=== PATIENT | female | born 1960 | race Caucasian/White ===

== ENCOUNTER → 2016-06-20 | Outpatient (CLI) | payer BC ==
--- NOTE | 2016-06-20 10:11 | WWHP ---
DATE OF SERVICE: 06/20/2016 CHIEF COMPLAINT: The patient is here for her routine gynecologic exam. HPI: This is a 55-year-old G1, P1 with an LMP of 04/11/2017. She states her periods have been spacing out over the last 1 to 2 years. Last year she had 3 periods. She says they were fairly normal and seem to be getting shorter. They are typically lasting 3 to 4 days when she does have one. She says she has occasional hot flashes, but they are not regular. She is without complaints. She previously saw Dr. Ruiz for her gynecologic care. PAST MEDICAL HISTORY: Chronic hypertension, elevated cholesterol, asthma, and mild cirrhosis. MEDICATIONS: 1. Losartan 25 mg daily. 2. Metoprolol 25 mg b.i.d. 3. Simvastatin 20 mg daily. 4. Albuterol inhaler p.r.n. which she rarely uses. 5. Vitamin D 2000 units daily. Allergies to KEFLEX, FLAGYL and SHELLFISH. PAST SURGICAL HISTORY: D&C 2013. PAST OB HISTORY: One vaginal delivery. 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 SOCIAL HISTORY: She denies tobacco and drug use and has about 4 alcoholic drinks per year. 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 She is planning to retire 11/2016. FAMILY HISTORY: Father had lymphoma, mother has chronic hypertension, elevated cholesterol, and psoriasis. REVIEW OF SYSTEMS: Weight has been stable. She denies respiratory, cardiac, or GI problems. PHYSICAL EXAM: Blood pressure 163/79. Repeat blood pressure was 150/90. Height 5 feet 9 inches. Weight 220 pounds. Temperature 97.2, pulse 64. This a well-developed, well-nourished white female who is alert and oriented x3 in no acute distress. HEENT is within normal limits. NECK: Supple without mass or thyromegaly. CHEST AND LUNGS: Clear to auscultation. HEART: Regular rate and rhythm. Breasts are without mass or discharge. Axillary exam is negative for adenopathy. BACK: Negative CVA tenderness. ABDOMEN: Soft, nontender, without palpable masses. PELVIC EXAM: Normal external genitalia. Cervix and vagina appear normal. There is no evidence of prolapse. The uterus is midposition, nongravid size and nontender. There are no palpable adnexal masses or tenderness. Rectovaginal exam is negative for mass or tenderness and is negative for occult blood. EXTREMITIES: Nontender. IMPRESSION: 1. A 55-year-old perimenopausal female with normal gynecologic exam. 2. Elevated cholesterol with history of chronic hypertension. PLAN: 1. Pap smear was performed. 2. Self breast examination was discussed. 3. Mammogram was recently done on 04/18/2016 and this was benign. 4. We discussed her elevated blood pressure. She does take her blood pressure on a regular basis at home. She will follow up with Dr. Jessica for her blood pressure elevations. 5. Osteoporosis prevention was discussed. 6. She will return in one year.
== END | disposition home or self-care (01) ==
LOC: WWCWWP 08:23
PROVIDERS: ATTEND Obstetrics & Gynecology

== ENCOUNTER → 2017-04-10 | Outpatient (CLI) | payer BC ==
[2017-04-10 10:36] LABS: Basophils # (A) 0.1 k/uL (0-0.2); Basophils % (A) 1 %; CH 30.1; CHCM 32.7; Eosinophils # (A) 0.4 k/uL (0-0.7); Eosinophils % (A) 6 %; HCT 46.6 % (34.0-46.0); HGB 14.9 gm/dL (11.4-16.0); Luc % (Auto) 2; Lymphocytes # (A) 1.3 k/uL (1.0-4.8); Lymphocytes % (A) 22 %; MCH 29.5 pg (25.0-35.0); MCHC 31.9 g/dL (31.0-37.0); MCV 92.5 fL (80.0-100.0); Mean Platelet Volume 7.4; Monocytes # (A) 0.4 k/uL (0-1.0); Monocytes % (A) 7 %; Neutrophils # (A) 3.8 k/uL (1.3-7.7); Neutrophils % (A) 62 %; RBC 5.04 m/uL (3.80-5.40); RDW 14.2 % (11.5-15.5); WBC 6.1 k/uL (3.8-10.6); WBC (Perox) 6.02
[2017-04-10 10:49] LABS: ALT 71 U/L (9-52); AST 41 U/L (14-36); Alkaline Phosphatase 122 U/L (38-126); Anion Gap 12 mmol/L; Blood Urea Nitrogen 17 mg/dL (7-17); Calcium 10.3 mg/dL (8.4-10.2); Carbon Dioxide 30 mmol/L (22-30); Chloride 101 mmol/L (98-107); Cholesterol 158 mg/dL (<200); Glucose 109 mg/dL (74-99); HDL Cholesterol 36 mg/dL (40-60); Non-African American GFR(MDRD) >60 (>60 ml/min/1.73 sqM); Potassium 4.7 mmol/L (3.5-5.1); Sodium 143 mmol/L (137-145); Total Bilirubin 0.6 mg/dL (0.2-1.3); Total Protein 7.6 g/dL (6.3-8.2)
== END | disposition home or self-care (01) ==
LOC: LABWHC1 10:10
PROVIDERS: ATTEND Family Medicine
DX: Z00.00 Encounter for general adult medical examination without abnormal findings (principal); I10 Essential (primary) hypertension
CPT/HCPCS: 36415; 80053; 80061; 82306; 84439; 84443; 85025

== ENCOUNTER → 2017-07-17 | Outpatient (CLI) | payer BC ==
[2017-07-17 09:33] VITALS: BP 144/94; PULSE 74; TEMP 98; BMI 31.7
--- NOTE | 2017-07-17 10:00 | P.HPOB ---
History of Present Illness H&P Date: 07/17/17 Chief Complaint: The patient is here for her routine gynecologic exam. This is a 56 year old with an LMP of 03/2016. The patient is without gynecologic complaints. Review of Systems The patient has lost about 5 pounds over the last year with diet and exercise. She denies respiratory, cardiac, and G.I. problems. Past Medical History Past Medical History: Asthma, Hyperlipidemia, Hypertension Additional Past Medical History / Comment(s): HIGH CHOLESTEROL,BONE DENSITY NONE , COLONOSCOPY OCTOBER 2016. She denies past liver problems but had slightly abnormal liver tests done by Dr. Jessica in 2017 per the patient. History of Any Multi-Drug Resistant Organisms: None Reported Additional Past Surgical History / Comment(s): D&C 2014, colonoscopy 10/2016. Past Psychological History: No Psychological Hx Reported Smoking Status: Never smoker Past Alcohol Use History: Occasional (0-1/week.) Additional History: She previously worked at a [employer] and now is retired. She has been since 1979. - Past Family History Father Family Medical History: Cancer Additional Family Medical History / Comment(s): LYMPHOMA Mother Family Medical History: Hyperlipidemia, Hypertension, Skin Disorder (Psoriasis) Medications and Allergies Home Medications Medication Instructions Recorded Confirmed Type Albuterol Inhaler [Ventolin Hfa 1 - 2 puff INHALATION Q6HR PRN 07/17/17 History Inhaler] Cholecalciferol (Vitamin D3) 1 cap PO DAILY 07/17/17 07/17/17 History [Vitamin D3] Losartan [Cozaar] 25 mg PO DAILY 07/17/17 07/17/17 History Metoprolol Tartrate [Lopressor] 25 mg PO BID 07/17/17 07/17/17 History Simvastatin [Zocor] 20 mg PO DAILY 07/17/17 07/17/17 History Allergies Allergy/AdvReac Type Severity Reaction Status Date / Time cephalexin [From Keflex] AdvReac Severe Nausea & Unverified 07/17/17 09:46 Vomiting metronidazole [From Flagyl] AdvReac Severe Nausea & Unverified 07/17/17 09:46 Vomiting Exam - Vital Signs Vital signs: Vital Signs Temp Pulse BP 07/17/17 09:30 98.0 F 74 144/94 Intake and Output 07/16/17 07/17/17 07/17/17 22:59 06:59 14:59 Other: Weight 97.522 kg Height 5'9" BMI 31.7. This is a well-developed well-nourished white female who is alert and oriented times 3 in no acute distress. HEENT: Within normal limits. NECK: Supple without mass or thyromegaly. CHEST AND LUNGS: Clear to auscultation. HEART: Regular rate and rhythm. BREASTS: Are without mass or discharge. AXILLARY EXAM: Negative for adenopathy. BACK: Negative for CVA tenderness. ABDOMEN: Soft, nontender, without palpable masses. PELVIC EXAM: Normal external genitalia with minimal atrophy. Cervix and vagina appear normal with minimal atrophy. There is no unusual discharge. There is no evidence of prolapse. The uterus is midposition, nongravid size and nontender. There are no palpable adnexal masses or tenderness. RECTAL EXAM: rectovaginal exam is negative for mass or tenderness and is negative for occult blood. EXTREMITIES: Nontender. IMPRESSION: 1. 56-year-old menopausal female with normal gynecologic exam. PLAN: 1. Pap smear was deferred since she had a normal one last year. 2. Self breast examination was discussed. 3. Screening mammogram is due in an order slip was given to the patient for this. 4. Osteoporosis prevention was discussed. 5. She will return in one year. 6. She will follow-up with Dr. Jessica regarding her abnormal liver tests.
== END | disposition home or self-care (01) ==
LOC: WWCWWP 09:09
PROVIDERS: ATTEND Obstetrics & Gynecology
DX: Z53.9 Procedure and treatment not carried out, unspecified reason (principal)

== ENCOUNTER → 2017-08-14 | Outpatient (CLI) | payer BC ==
--- NOTE | 2017-08-15 08:48 | MM ---
Reason for exam: screening (asymptomatic). Last mammogram was performed 1 year and 4 months ago. Physical Findings: A clinical breast exam by your physician is recommended on an annual basis and results should be correlated with mammographic findings. MG Screening Mammo w CAD Bilateral CC and MLO view(s) were taken. Prior study comparison: April 18, 2016, bilateral MG screening mammo w CAD. April 12, 2015, bilateral MG screening mammo w CAD. Benign calcifications bilaterally. There is chronic nodularity in the right breast. No significant changes when compared with prior studies. ASSESSMENT: Benign, BI-RAD 2 RECOMMENDATION: Routine screening mammogram of both breasts in 1 year.
== END | disposition home or self-care (01) ==
LOC: RADMAMWWP 13:08
PROVIDERS: ATTEND Obstetrics & Gynecology
DX: Z12.31 Encounter for screening mammogram for malignant neoplasm of breast (principal)
CPT/HCPCS: 77067

== ENCOUNTER → 2018-08-21 | Outpatient (CLI) | payer BC ==
[2018-08-21 09:35] VITALS: BP 159/94; PULSE 80; RESP 18; TEMP 98.3; BMI 69.0
--- NOTE | 2018-08-21 10:31 | P.HPOB ---
History of Present Illness H&P Date: 08/21/18 Chief Complaint: The patient is here for her routine gynecologic exam. This is a 57-year-old with an LMP of March 2017. The patient has been experiencing vaginal dryness especially during sexual intercourse which can make things uncomfortable. She has tried a lubricant with slight improvement. She noticed a small amount of discharge in the pubic hair earlier this week, but denies vaginal odor or blood. Review of Systems Weight has been stable. She denies respiratory, cardiac, or G.I. problems. Past Medical History Past Medical History: Asthma, Hyperlipidemia, Hypertension Additional Past Medical History / Comment(s): She denies past liver problems but had slightly abnormal liver tests done by Dr. Jessica in 2017 per the patient. 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 History of Any Multi-Drug Resistant Organisms: None Reported Additional Past Surgical History / Comment(s): D&C 2013, colonoscopy 10/2016. Past Psychological History: No Psychological Hx Reported Smoking Status: Never smoker Past Alcohol Use History: Occasional (1 per month) Past Drug Use History: None Reported Additional History: She has been since 1979 and is retired. She likes to spend time in [place] during the winter. - Past Family History Father Family Medical History: Cancer Additional Family Medical History / Comment(s): LYMPHOMA Mother Family Medical History: Hyperlipidemia, Hypertension, Skin Disorder Additional Family Medical History / Comment(s): Psoriasis. Medications and Allergies Home Medications Medication Instructions Recorded Confirmed Type Cholecalciferol (Vitamin D3) 1 cap PO DAILY 07/17/17 08/21/18 History [Vitamin D3] Losartan [Cozaar] 25 mg PO DAILY 07/17/17 08/21/18 History Metoprolol Tartrate [Lopressor] 25 mg PO BID 07/17/17 08/21/18 History Simvastatin [Zocor] 20 mg PO DAILY 07/17/17 08/21/18 History Allergies Allergy/AdvReac Type Severity Reaction Status Date / Time cephalexin [From Keflex] AdvReac Severe Nausea & Unverified 08/21/18 09:31 Vomiting metronidazole [From Flagyl] AdvReac Severe Nausea & Unverified 08/21/18 09:31 Vomiting Exam Vital Signs Temp Pulse Resp BP Pulse Ox 08/21/18 09:32 98.3 F 80 18 159/94 99 Intake and Output 04/30/19 05/01/19 05/01/19 22:59 06:59 14:59 Other: Weight 96.162 kg Height 5'9", weight 212 pounds, BMI 31.3. This is a well-developed well-nourished white female who is alert and oriented times 3 in no acute distress. HEENT: Within normal limits. NECK: Supple without mass or thyromegaly. CHEST AND LUNGS: Clear to auscultation. HEART: Regular rate and rhythm. BREASTS: Are without mass or discharge. AXILLARY EXAM: Negative for adenopathy. BACK: Negative for CVA tenderness. ABDOMEN: Soft, nontender, without palpable masses. PELVIC EXAM: Normal external genitalia with mild atrophy. Cervix and vagina appear normal with mild atrophy. There is no unusual discharge. There is no evidence of prolapse. The uterus is midposition, nongravid size and nontender. There are no palpable adnexal masses or tenderness. RECTAL EXAM: rectovaginal exam is negative for mass or tenderness and is negative for occult blood. EXTREMITIES: Nontender. IMPRESSION: 1. 57-year-old menopausal female with normal gynecologic exam. 2. Mild genital atrophy with vaginal dryness with intercourse. PLAN: 1. Pap smear was performed. 2. Self breast awareness was discussed with the patient. 3. Screening mammogram is scheduled for 09/03/2018. She has an order slip from Dr. Jessica for this. 4. Osteoporosis prevention was discussed. I have stressed the importance of adequate calcium, vitamin D and regular exercise. Recommended amounts of calcium and vitamin D were also discussed. We will plan on doing bone density testing at age 61. 5. We have discussed options for vaginal dryness with sexual intercourse. She is declining vaginal estrogen at this time. She will call if she changes her mind. 6.She was advised to return in one year for her annual well woman exam.
== END ==
LOC: WWCWWP 09:14
PROVIDERS: ATTEND Obstetrics & Gynecology
DX: Z53.9 Procedure and treatment not carried out, unspecified reason (principal)

== ENCOUNTER → 2018-09-03 | Outpatient (CLI) | payer BC ==
--- NOTE | 2018-09-04 09:38 | MM ---
Reason for exam: screening (asymptomatic). Last mammogram was performed 1 year and 1 month ago. Physical Findings: A clinical breast exam by your physician is recommended on an annual basis and results should be correlated with mammographic findings. MG Screening Mammo w CAD Bilateral CC and MLO view(s) were taken. Prior study comparison: August 14, 2017, bilateral MG screening mammo w CAD. April 18, 2016, bilateral MG screening mammo w CAD. The breast tissue is heterogeneously dense. This may lower the sensitivity of mammography. There is no discrete abnormality. ASSESSMENT: Negative, BI-RAD 1 RECOMMENDATION: Routine screening mammogram of both breasts in 1 year.
== END | disposition home or self-care (01) ==
LOC: RADMAMWWP 13:33
PROVIDERS: ATTEND Family Medicine
DX: Z12.31 Encounter for screening mammogram for malignant neoplasm of breast (principal)
CPT/HCPCS: 77067

== ENCOUNTER → 2018-09-11 | Outpatient (CLI) | payer BC ==
[2018-09-11 16:33] LABS: Albumin 4.4 g/dL (3.80-4.90); Albumin/Globulin Ratio 1.91 (1.60-3.17); Anion Gap 9.1 mmol/L (4.00-12.00); Calcium 9.2 mg/dL (8.7-10.3); Carbon Dioxide 26.9 mmol/L (21.6-31.8); Globulin 2.3 g/dL (1.6-3.3); Potassium 4.1 mmol/L (3.5-5.5); Total Bilirubin 0.7 mg/dL (0.3-1.2); Total Protein 6.7 g/dL (6.2-8.2)
== END | disposition home or self-care (01) ==
LOC: LABWHC1 08:30
PROVIDERS: ATTEND Family Medicine
DX: R74.8 Abnormal levels of other serum enzymes (principal)
CPT/HCPCS: 36415; 80053

== ENCOUNTER 2018-10-19 10:58 | Inpatient (IN) | payer BC ==
--- NOTE | 2018-10-19 11:43 | ED ---
General Adult HPI - General Chief complaint: Recheck/Abnormal Lab/Rx Stated complaint: Bruising Time Seen by Provider: 10/19/18 11:22 Source: patient Mode of arrival: ambulatory Limitations: no limitations - History of Present Illness Initial comments: Patient is a 57-year-old female presents with chief complaint of exertional fatigue and easy bruisability for the last week. Patient states that about 2 weeks ago she was treated for an upper respiratory infection and received a steroid shot. She improved after initial treatment however over the last week or so she states she has been increasingly more fatigued, and notices that she bruises very easily. She cannot identify an inciting incident. There are no aggravating or alleviating factors. Timing is constant. Patient denies any trauma to cause the bruising. She denies any previous episodes of the same. She states she was vaccinated as a child. Patient also complains of some sores in her mouth. - Related Data Home Medications Medication Instructions Recorded Confirmed Losartan [Cozaar] 25 mg PO DAILY 07/17/17 10/19/18 Metoprolol Tartrate [Lopressor] 25 mg PO BID 07/17/17 10/19/18 Simvastatin [Zocor] 20 mg PO HS 07/17/17 10/19/18 Calcium Carbonate [Calcium] 600 mg PO DAILY 10/19/18 10/19/18 Lifitegrast [Xiidra] 1 drop BOTH EYES BID 10/19/18 10/19/18 Allergies Allergy/AdvReac Type Severity Reaction Status Date / Time cephalexin [From Keflex] AdvReac Severe Nausea & Verified 10/19/18 12:13 Vomiting metronidazole [From Flagyl] AdvReac Severe Nausea & Verified 10/19/18 12:13 Vomiting shellfish derived [Shellfish] AdvReac Vomiting Verified 10/19/18 12:13 Review of Systems ROS Statement: Those systems with pertinent positive or pertinent negative responses have been documented in the HPI. ROS Other: All systems not noted in ROS Statement are negative. Constitutional: Reports: weakness Cardiovascular: Reports: palpitations, dyspnea on exertion. Denies: chest pain Endocrine: Reports: fatigue Gastrointestinal: Reports: nausea. Denies: abdominal pain Hematological/Lymphatic: Reports: easy bruising Past Medical History Past Medical History: Asthma, Hyperlipidemia, Hypertension Additional Past Medical History / Comment(s): She denies past liver problems but had slightly abnormal liver tests done by Dr. Jessica in 2017 per the patient. 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 History of Any Multi-Drug Resistant Organisms: None Reported Additional Past Surgical History / Comment(s): D&C 2013, colonoscopy 10/2016. Past Psychological History: No Psychological Hx Reported Smoking Status: Never smoker Past Alcohol Use History: Occasional Past Drug Use History: None Reported - Past Family History Father Family Medical History: Cancer Additional Family Medical History / Comment(s): LYMPHOMA Mother Family Medical History: Hyperlipidemia, Hypertension, Skin Disorder Additional Family Medical History / Comment(s): Psoriasis. General Exam Limitations: no limitations General appearance: alert, in no apparent distress Head exam: Present: atraumatic, normocephalic Eye exam: Present: normal appearance. Absent: scleral icterus ENT exam: Present: other (patient has few areas of purpura in the mouth, dental caries, no masses or other lesions identified. ) Neck exam: Present: normal inspection Respiratory exam: Present: normal lung sounds bilaterally. Absent: respiratory distress, wheezes Cardiovascular Exam: Present: regular rate, normal rhythm GI/Abdominal exam: Present: soft. Absent: distended, tenderness Rectal exam: Present: deferred Extremities exam: Present: normal inspection, other (patient has areas of bruising on the estremites, upper and lower, in different stages of healing. she denies trauma or abuse. ) Back exam: Present: normal inspection, full ROM. Absent: tenderness, CVA ten derness (R), CVA tenderness (L) Neurological exam: Present: alert, oriented X3 Psychiatric exam: Present: normal affect, normal mood Skin exam: Present: warm, dry, intact. Absent: petechiae Course Vital Signs 10/19/18 10/19/18 10/19/18 11:19 15:15 15:22 Temperature 99.1 F 98.6 F 98.6 F Pulse Rate 92 81 88 Respiratory 18 16 18 Rate Blood Pressure 133/90 116/83 136/86 O2 Sat by Pulse 98 95 97 Oximetry 10/19/18 15:32 Temperature 98.6 F Pulse Rate 85 Respiratory 18 Rate Blood Pressure 132/85 O2 Sat by Pulse 97 Oximetry Medical Decision Making - Medical Decision Making Patient presents with a chief complaint of easy fatigability and bruising over the last week. Initial evaluation, vitals are stable, patient is in no acute distress. She'll be evaluated patient lead including cardiac enzymes, chest x- ray, thyroid screen and d-dimer. EKG at 1242 shows NSR with a rate of 76 bmp. no ischemic changes, segments wnl. 1:26 PM Lab evaluation this patient shows a drop in hemoglobin to 10.1 from previous stable values of 14 (these were one year ago). Platelet count is 9000. Blasts are 67%, concern for malignant process at this time. Dimer elevated at 23.07. Labs otherwise stable. Results were discussed with the patient, that this is likely drug-induced thrombocytopenia however patient will be admitted to the hospital for further evaluation. Case discussed with Dr. Rosenberg who accepts admission with consult to Dr. Freedman. Patient will be sent for computed tomography scan of the chest to rule out pulmonary embolism. I doubt that this is a consumptive process however given elevated d-dimer. - Lab Data Result diagrams: 10/19/18 12:02 10/19/18 12:02 Lab Results 10/19/18 10/19/18 10/19/18 Range/Units 12:02 12:02 12:02 WBC 10.5 (3.8-10.6) k/uL RBC 3.17 L (3.80-5.40) m/uL Hgb 10.1 L (11.4-16.0) gm/dL Hct 27.6 L (34.0-46.0) % MCV 87.1 (80.0-100.0) fL MCH 32.0 (25.0-35.0) pg MCHC 36.7 (31.0-37.0) g/dL RDW 19.3 H (11.5-15.5) % Plt Count 9 L* (150-450) k/uL Neutrophils % (Manual) 7 % Band Neutrophils % 1 % Lymphocytes % (Manual) 13 % Metamyelocytes % 1 % Myelocytes % 6 % Promyelocytes % 6 % Blast Cells % 67 H* % Neutrophils # (Manual) 0.80 L (1.3-7.7) k/uL Lymphocytes # (Manual) 1.37 (1.0-4.8) k/uL Metamyelocytes # (Man) 0.11 H (0) k/uL Myelocytes # (Manual) 0.63 H (0) k/uL Promyelocytes # (Man) 0.63 H (0) k/uL Blast Cells # (Man) 7.04 H (0) k/uL Nucleated RBCs 0 (0-0) /100 WBC Manual Slide Review Performed Pathologist Review See comment A Hyperchromasia Slight Poikilocytosis Slight Anisocytosis Slight PT (9.0-12.0) sec INR (<1.2) D-Dimer (<0.60) mg/L FEU Sodium 140 (137-145) mmol/L Potassium 4.7 (3.5-5.1) mmol/L Chloride 106 (98-107) mmol/L Carbon Dioxide 24 (22-30) mmol/L Anion Gap 10 mmol/L BUN 19 H (7-17) mg/dL Creatinine 0.68 (0.52-1.04) mg/dL Est GFR (CKD-EPI)AfAm >90 (>60 ml/min/1.73 sqM) Est GFR (CKD-EPI)NonAf >90 (>60 ml/min/1.73 sqM) Glucose 120 H (74-99) mg/dL Calcium 9.5 (8.4-10.2) mg/dL Total Bilirubin 1.1 (0.2-1.3) mg/dL AST 40 H (14-36) U/L ALT 19 (9-52) U/L Alkaline Phosphatase 79 (38-126) U/L Troponin I <0.012 (0.000-0.034) ng/mL NT-Pro-B Natriuret Pep pg/mL Total Protein 7.7 (6.3-8.2) g/dL Albumin 4.7 (3.5-5.0) g/dL TSH 2.540 (0.465-4.680) mIU/L Blood Type Confirm 10/19/18 10/19/18 10/19/18 Range/Units 12:02 12:02 12:02 WBC (3.8-10.6) k/uL RBC (3.80-5.40) m/uL Hgb (11.4-16.0) gm/dL Hct (34.0-46.0) % MCV (80.0-100.0) fL MCH (25.0-35.0) pg MCHC (31.0-37.0) g/dL RDW (11.5-15.5) % Plt Count (150-450) k/uL Neutrophils % (Manual) % Band Neutrophils % % Lymphocytes % (Manual) % Metamyelocytes % % Myelocytes % % Promyelocytes % % Blast Cells % % Neutrophils # (Manual) (1.3-7.7) k/uL Lymphocytes # (Manual) (1.0-4.8) k/uL Metamyelocytes # (Man) (0) k/uL Myelocytes # (Manual) (0) k/uL Promyelocytes # (Man) (0) k/uL Blast Cells # (Man) (0) k/uL Nucleated RBCs (0-0) /100 WBC Manual Slide Review Pathologist Review Hyperchromasia Poikilocytosis Anisocytosis PT 11.7 (9.0-12.0) sec INR 1.1 (<1.2) D-Dimer 23.07 H (<0.60) mg/L FEU Sodium (137-145) mmol/L Potassium (3.5-5.1) mmol/L Chloride (98-107) mmol/L Carbon Dioxide (22-30) mmol/L Anion Gap mmol/L BUN (7-17) mg/dL Creatinine (0.52-1.04) mg/dL Est GFR (CKD-EPI)AfAm (>60 ml/min/1.73 sqM) Est GFR (CKD-EPI)NonAf (>60 ml/min/1.73 sqM) Glucose (74-99) mg/dL Calcium (8.4-10.2) mg/dL Total Bilirubin (0.2-1.3) mg/dL AST (14-36) U/L ALT (9-52) U/L Alkaline Phosphatase (38-126) U/L Troponin I (0.000-0.034) ng/mL NT-Pro-B Natriuret Pep 159 pg/mL Total Protein (6.3-8.2) g/dL Albumin (3.5-5.0) g/dL TSH (0.465-4.680) mIU/L Blood Type Confirm 10/19/18 Range/Units 12:02 WBC (3.8-10.6) k/uL RBC (3.80-5.40) m/uL Hgb (11.4-16.0) gm/dL Hct (34.0-46.0) % MCV (80.0-100.0) fL MCH (25.0-35.0) pg MCHC (31.0-37.0) g/dL RDW (11.5-15.5) % Plt Count (150-450) k/uL Neutrophils % (Manual) % Band Neutrophils % % Lymphocytes % (Manual) % Metamyelocytes % % Myelocytes % % Promyelocytes % % Blast Cells % % Neutrophils # (Manual) (1.3-7.7) k/uL Lymphocytes # (Manual) (1.0-4.8) k/uL Metamyelocytes # (Man) (0) k/uL Myelocytes # (Manual) (0) k/uL Promyelocytes # (Man) (0) k/uL Blast Cells # (Man) (0) k/uL Nucleated RBCs (0-0) /100 WBC Manual Slide Review Pathologist Review Hyperchromasia Poikilocytosis Anisocytosis PT (9.0-12.0) sec INR (<1.2) D-Dimer (<0.60) mg/L FEU Sodium (137-145) mmol/L Potassium (3.5-5.1) mmol/L Chloride (98-107) mmol/L Carbon Dioxide (22-30) mmol/L Anion Gap mmol/L BUN (7-17) mg/dL Creatinine (0.52-1.04) mg/dL Est GFR (CKD-EPI)AfAm (>60 ml/min/1.73 sqM) Est GFR (CKD-EPI)NonAf (>60 ml/min/1.73 sqM) Glucose (74-99) mg/dL Calcium (8.4-10.2) mg/dL Total Bilirubin (0.2-1.3) mg/dL AST (14-36) U/L ALT (9-52) U/L Alkaline Phosphatase (38-126) U/L Troponin I (0.000-0.034) ng/mL NT-Pro-B Natriuret Pep pg/mL Total Protein (6.3-8.2) g/dL Albumin (3.5-5.0) g/dL TSH (0.465-4.680) mIU/L Blood Type Confirm B Negative Disposition Clinical Impression: Thrombocytopenia, AML (acute myeloblastic leukemia) Disposition: ADMITTED IP TO THIS HOSP Condition: Fair Is patient prescribed a controlled substance at d/c from ED?: No Decision to Admit Reason: Admit from EC - Out of Hospital Transfer - Req. Specs Out of Hospital Transfer - Requested Specifics: Telemetry Unit
[2018-10-19 12:20] LABS: Anisocytosis Slight; HCT 27.6 % (34.0-46.0); HGB 10.1 gm/dL (11.4-16.0); Hyperchromasia Slight; MCHC 36.7 g/dL (31.0-37.0); MCV 87.1 fL (80.0-100.0); Mean Platelet Volume 7.9; Poikilocytosis Slight; RBC 3.17 m/uL (3.80-5.40); RDW 19.3 % (11.5-15.5); WBC 10.5 k/uL (3.8-10.6)
[2018-10-19 12:26] LABS: ALT 19 U/L (9-52); AST 40 U/L (14-36); African American GFR (CKD) >90 (>60 ml/min/1.73 sqM); Albumin 4.7 g/dL (3.5-5.0); Alkaline Phosphatase 79 U/L (38-126); Anion Gap 10 mmol/L; Blood Urea Nitrogen 19 mg/dL (7-17); Calcium 9.5 mg/dL (8.4-10.2); Carbon Dioxide 24 mmol/L (22-30); Chloride 106 mmol/L (98-107); Glucose 120 mg/dL (74-99); Sodium 140 mmol/L (137-145); Total Bilirubin 1.1 mg/dL (0.2-1.3); Total Protein 7.7 g/dL (6.3-8.2)
--- NOTE | 2018-10-19 12:29 | XR ---
EXAMINATION TYPE: XR chest 2V DATE OF EXAM: 10/19/2018 HISTORY: Pain. REFERENCE: Previous study dated 12/19/2011. FINDINGS: There is increased density in the left upper lobe. This was present previously and appeared osseous. The lungs are otherwise clear. Pleural spaces are clear. Heart size upper limits of normal. IMPRESSION: NO ACTIVE INTRATHORACIC DISEASE.
[2018-10-19 12:33] LABS: Platelet Count 9 k/uL (150-450)
[2018-10-19 12:34] LABS: Potassium 4.7 mmol/L (3.5-5.1)
[2018-10-19 13:00] LABS: Band Neutrophils % 1 %; Lymphocytes # (M) 1.37 k/uL (1.0-4.8); Metamyelocytes # (M) 0.11 k/uL (0); Metamyelocytes % 1 %; Myelocytes # (M) 0.63 k/uL (0); Myelocytes % 6 %; Neutrophils % (M) 7 %; Promyelocytes # (M) 0.63 k/uL (0); Promyelocytes % 6 %
[2018-10-19 13:21] LABS: Blast Cells # (M) 7.04 k/uL (0); Nucleated Red Blood Cells 0 /100 WBC (0-0); Total Cells Counted 200
[2018-10-19] MEDS ORDERED: NALOXONE 0.4 MG/ML 1 ML VIAL IV PRN (13:21)
[2018-10-19 13:25] LABS: INR 1.1 (<1.2); Prothrombin Time 11.7 sec (9.0-12.0)
[2018-10-19 13:42] LABS: Appearance,Urine Cloudy (Clear); Bacteria,Urine Occasional /hpf; Bilirubin,Urine Negative (Negative); Blood,Urine Moderate (Negative); Color,Urine Yellow; Glucose,Urine (UA) Negative (Negative); Ketones,Urine Negative (Negative); Leukocyte Esterase,Urine Negative (Negative); Mucus,Urine Few /hpf; Nitrite,Urine Negative (Negative); PH, Urine 5.5 (5.0-8.0); Protein,Urine Trace (Negative); RBC,Urine 5 /hpf (0-5); Specific Gravity,Urine 1.018 (1.001-1.035); Squamous Epithelial Cell,Urine 10 /hpf (0-4); Urobilinogen,Urine <2.0 mg/dL (<2.0); WBC,Urine 2 /hpf (0-5)
--- NOTE | 2018-10-19 14:27 | CT ---
EXAMINATION TYPE: CT chest angio for PE DATE OF EXAM: 10/19/2018 COMPARISON: None. HISTORY: Elevated D dimer, bruising CT DLP: 415.2 mGycm Automated exposure control for dose reduction was used. CONTRAST: CT Chest for pulmonary embolism performed with with IV Contrast, patient injected with 74 mL of Isovu e 370. FINDINGS: The lungs are clear. There is no significant axillary, internal mammary, mediastinal or hilar adenopathy. There is no evidence of pulmonary embolus. The aorta is normal in caliber without evidence of dissection. There is no evidence of pleural or pericardial fluid. Heart size upper limits of normal. There is a small, sliding hiatal hernia. Visualized upper abdominal structures are unremarkable. There is hypertrophic spondylosis within the spine. IMPRESSION: 1. THIS EXAMINATION IS NEGATIVE FOR PULMONARY EMBOLUS. 2. MILD CARDIOMEGALY. 3. SMALL HIATAL HERNIA. 4. DEGENERATIVE CHANGES WITHIN THE SPINE.
[2018-10-19 17:19] VITALS: BMI 28.5
[2018-10-19] MEDS: ACETAMINOPHEN TAB 325 MG TAB PO PRN (20:13)
[2018-10-19] MEDS: NON-FORMULARY DRUG (Lifitegrast [Xiidra] 1 DROP) BOTH EYES SCH (21:19)
[2018-10-19] MEDS: METOPROLOL TARTRATE 25 MG TAB PO SCH (21:19)
[2018-10-19] MEDS: ATORVASTATIN 10 MG TAB PO SCH (21:19)
[2018-10-19 22:13] LABS: Anisocytosis Slight; HCT 25.4 % (34.0-46.0); HGB 8.8 gm/dL (11.4-16.0); Hyperchromasia Slight; MCH 30.7 pg (25.0-35.0); MCHC 34.9 g/dL (31.0-37.0); MCV 88.1 fL (80.0-100.0); Mean Platelet Volume 9.4; Poikilocytosis Slight; RBC 2.88 m/uL (3.80-5.40); RDW 17.1 % (11.5-15.5)
[2018-10-19 22:41] LABS: Platelet Count 11 k/uL (150-450)
[2018-10-19 23:26] LABS: Band Neutrophils % 3 %; Metamyelocytes % 1 %; Myelocytes % 4 %; Neutrophils % (M) 9 %; Promyelocytes % 3 %
[2018-10-19 23:27] LABS: Nucleated Red Blood Cells 3 /100 WBC (0-0); Total Cells Counted 200
[2018-10-19 23:31] LABS: Polychromasia Present
[2018-10-20] MEDS: ACETAMINOPHEN TAB 325 MG TAB PO PRN ×3 (03:56→19:08)
[2018-10-20] MEDS: NON-FORMULARY DRUG (Lifitegrast [Xiidra] 1 DROP) BOTH EYES SCH ×2 (07:33→20:59)
[2018-10-20] MEDS: METOPROLOL TARTRATE 25 MG TAB PO SCH ×2 (07:34→20:59)
[2018-10-20] MEDS: CALCIUM CARBONATE 500 MG CHEWABLE PO SCH (07:34)
[2018-10-20 07:35] LABS: Anisocytosis Slight; HCT 23.3 % (34.0-46.0); HGB 8.3 gm/dL (11.4-16.0); Hyperchromasia Slight; MCH 31.7 pg (25.0-35.0); MCHC 35.7 g/dL (31.0-37.0); MCV 88.6 fL (80.0-100.0); Mean Platelet Volume 7.7; Poikilocytosis Slight; RBC 2.63 m/uL (3.80-5.40); RDW 17.4 % (11.5-15.5)
[2018-10-20] MEDS: LOSARTAN 25 MG TAB PO SCH (07:35)
[2018-10-20 07:46] LABS: African American GFR (CKD) >90 (>60 ml/min/1.73 sqM); Anion Gap 8 mmol/L; Blood Urea Nitrogen 17 mg/dL (7-17); Calcium 9.2 mg/dL (8.4-10.2); Carbon Dioxide 25 mmol/L (22-30); Chloride 107 mmol/L (98-107); Glucose 99 mg/dL (74-99); Potassium 3.6 mmol/L (3.5-5.1); Sodium 140 mmol/L (137-145)
[2018-10-20 08:05] LABS: Platelet Count 7 k/uL (150-450)
[2018-10-20 08:14] LABS: INR 1.1 (<1.2); Prothrombin Time 11.8 sec (9.0-12.0)
[2018-10-20 09:18] LABS: Band Neutrophils % 1 %; Eosinophils # (M) 0.11 k/uL (0-0.7); Metamyelocytes % 2 %; Myelocytes # (M) 0.43 k/uL (0); Myelocytes % 4 %; Neutrophils % (M) 5 %; Nucleated Red Blood Cells 1 /100 WBC (0-0); Promyelocytes % 9 %; Total Cells Counted 200
[2018-10-20 09:19] LABS: Blast Cells # (M) 7.38 k/uL (0); Lymphocytes # (M) 1.18 k/uL (1.0-4.8); Metamyelocytes # (M) 0.21 k/uL (0); Promyelocytes # (M) 0.96 k/uL (0); WBC 10.7 k/uL (3.8-10.6)
[2018-10-20 09:25] LABS: Polychromasia Present
--- NOTE | 2018-10-20 15:14 | P.HPIM ---
History of Present Illness H&P Date: 10/19/18 57-year-old female presents with chief complaint of exertional fatigue and easy bruisability for the last week. Patient states that about 2 weeks ago she was treated for an upper respiratory infection and received a steroid shot. She improved after initial treatment however over the last week or so she states she has been increasingly more fatigued, and notices that she bruises very easily. She cannot identify an inciting incident. There are no aggravating or alleviating factors. Timing is constant. Patient denies any trauma to cause the bruising. She denies any previous episodes of the same. She states she was vaccinated as a child. Patient also complains of some sores in her mouth. Patient was evaluated and worked up in ED with a chest x-ray which was unremarkable, d-dimer elevated at 23.07 and a thyroid screen which was negative; CT of the chest was done which was negative for PE; CBC showed a drop in hemoglobin to 10.1 from previous stable value of 14 and a platelet count of 19,000 Patient was transfused with 1 unit of platelets and is admitted to the hospital for further evaluation Review of Systems Constitutional: Reports fatigue, Reports weakness, Denies chills, Denies fever Eyes: denies blurred vision Ears, nose, mouth and throat: Denies epistaxis Cardiovascular: Reports decreased exercise tolerance, Reports dyspnea on exertion, Denies chest pain Respiratory: Denies cough with sputum Gastrointestinal: Reports vomiting, Denies abdominal pain, Denies nausea Musculoskeletal: Denies gait dysfunction Integumentary: Reports unusual bruising, Denies change in hair/nails, Denies darkening of skin Neurological: Denies double vision, Denies gait dysfunction Past Medical History Past Medical History: Asthma, Hyperlipidemia, Hypertension Additional Past Medical History / Comment(s): She denies past liver problems but had slightly abnormal liver tests done by Dr. Jessica in 2017 per the patient. 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 History of Any Multi-Drug Resistant Organisms: None Reported Additional Past Surgical History / Comment(s): D&C 2013, colonoscopy 10/2016. Past Psychological History: No Psychological Hx Reported Smoking Status: Never smoker Past Alcohol Use History: Occasional Past Drug Use History: None Reported - Past Family History Father Family Medical History: Cancer Additional Family Medical History / Comment(s): LYMPHOMA Mother Family Medical History: Hyperlipidemia, Hypertension, Skin Disorder Additional Family Medical History / Comment(s): Psoriasis. Medications and Allergies Home Medications Medication Instructions Recorded Confirmed Type Losartan [Cozaar] 25 mg PO DAILY 07/17/17 10/19/18 History Metoprolol Tartrate [Lopressor] 25 mg PO BID 07/17/17 10/19/18 History Simvastatin [Zocor] 20 mg PO HS 07/17/17 10/19/18 History Calcium Carbonate [Calcium] 600 mg PO DAILY 10/19/18 10/19/18 History Lifitegrast [Xiidra] 1 drop BOTH EYES BID 10/19/18 10/19/18 History Allergies Allergy/AdvReac Type Severity Reaction Status Date / Time cephalexin [From Keflex] AdvReac Severe Nausea & Verified 10/19/18 12:13 Vomiting metronidazole [From Flagyl] AdvReac Severe Nausea & Verified 10/19/18 12:13 Vomiting shellfish derived [Shellfish] AdvReac Vomiting Verified 10/19/18 12:13 Physical Exam Vitals: Vital Signs Temp Pulse Pulse Resp BP BP Pulse Ox 10/19/18 16:10 98.5 F 83 18 129/80 98 10/19/18 16:00 81 16 10/19/18 15:32 98.6 F 85 18 132/85 97 10/19/18 15:22 98.6 F 88 18 136/86 97 10/19/18 15:15 98.6 F 81 16 116/83 95 10/19/18 15:12 98.3 F 81 16 147/72 99 10/19/18 11:19 99.1 F 92 18 133/90 98 Intake and Output 10/19/18 10/19/18 10/19/18 06:59 14:59 22:59 Intake Total 419 Balance 419 Intake: Oral 120 Blood Product 299 Platelet Irr Pheresis 299 Acda1 Unit [id number] Other: Voiding Method Toilet # Voids 1 # Bowel Movements 1 Weight 91.626 kg Limitations: no limitations General appearance: alert, in no apparent distress Head exam: Present: atraumatic, normocephalic Eye exam: Present: normal appearance. Absent: scleral icterus ENT exam: Present: other (patient has few areas of purpura in the mouth, dental caries, no masses or other lesions identified. ) Neck exam: Present: normal inspection Respiratory exam: Present: normal lung sounds bilaterally. Absent: respiratory distress, wheezes Cardiovascular Exam: Present: regular rate, normal rhythm GI/Abdominal exam: Present: soft. Absent: distended, tenderness Rectal exam: Present: deferred Extremities exam: Present: normal inspection, other (patient has areas of bruising on the estremites, upper and lower, in different stages of healing. she denies trauma or abuse. ) Back exam: Present: normal inspection, full ROM. Absent: tenderness, CVA tenderness (R), CVA tenderness (L) Neurological exam: Present: alert, oriented X3 Psychiatric exam: Present: normal affect, normal mood Skin exam: Present: warm, dry, intact. Absent: petechiae Results CBC & Chem 7: 10/20/18 06:44 10/20/18 06:44 Labs: Abnormal Lab Results - Last 24 Hours (Table) 10/19/18 10/19/18 10/19/18 Range/Units 12:02 12:02 12:02 RBC 3.17 L (3.80-5.40) m/uL Hgb 10.1 L (11.4-16.0) gm/dL Hct 27.6 L (34.0-46.0) % RDW 19.3 H (11.5-15.5) % Plt Count 9 L* (150-450) k/uL Blast Cells % 67 H* % Neutrophils # (Manual) 0.80 L (1.3-7.7) k/uL Metamyelocytes # (Man) 0.11 H (0) k/uL Myelocytes # (Manual) 0.63 H (0) k/uL Promyelocytes # (Man) 0.63 H (0) k/uL Blast Cells # (Man) 7.04 H (0) k/uL Pathologist Review See comment A D-Dimer 23.07 H (<0.60) mg/L FEU BUN 19 H (7-17) mg/dL Glucose 120 H (74-99) mg/dL AST 40 H (14-36) U/L Urine Appearance (Clear) Urine Protein (Negative) Urine Blood (Negative) Ur Squamous Epith Cells (0-4) /hpf Urine Bacteria (None) /hpf Urine Mucus (None) /hpf 10/19/18 Range/Units 13:30 RBC (3.80-5.40) m/uL Hgb (11.4-16.0) gm/dL Hct (34.0-46.0) % RDW (11.5-15.5) % Plt Count (150-450) k/uL Blast Cells % % Neutrophils # (Manual) (1.3-7.7) k/uL Metamyelocytes # (Man) (0) k/uL Myelocytes # (Manual) (0) k/uL Promyelocytes # (Man) (0) k/uL Blast Cells # (Man) (0) k/uL Pathologist Review D-Dimer (<0.60) mg/L FEU BUN (7-17) mg/dL Glucose (74-99) mg/dL AST (14-36) U/L Urine Appearance Cloudy H (Clear) Urine Protein Trace H (Negative) Urine Blood Moderate H (Negative) Ur Squamous Epith Cells 10 H (0-4) /hpf Urine Bacteria Occasional H (None) /hpf Urine Mucus Few H (None) /hpf Thrombosis Risk Factor Assmnt - Choose All That Apply Any of the Below Risk Factors Present?: Yes Each Factor Represents 1 point: Age 41-60 years Thrombosis Risk Factor Assessment Total Risk Factor Score: 1 Thrombosis Risk Factor Assessment Level: Low Risk Assessment and Plan Assessment: 1. Marked thrombocytopenia - Patient is transfused with 1 unit of platelets; monitor CBC closely every 8 hours and transfuse as needed - Patient will be monitored closely for any signs of bleeding; oncology is consulted and recommendations are pending 2. Hypertension; fairly controlled on home dose of losartan and metoprolol 3. Hyperlipidemia; simvastatin 20 mg by mouth daily at bedtime 4. Asthma; not in exacerbation 5. DVT prophylaxis; SCDs only due to thrombus cytopenia CODE STATUS; full code Time with Patient: Greater than 30
--- NOTE | 2018-10-20 15:17 | P.PN ---
Subjective Progress Note Date: 10/20/18 Principal diagnosis: Blayne thrombocytopenia 10/20/2018 Patient is seen and evaluated in room with the sister at bedside; seems anxious; continue to complain of fatigue and exhaustion Review of vital signs show temperature of 98.1, pulse 84, respirations 16 and blood pressure 130/76 Laboratory review shows a white blood count 10.7, hemoglobin 8.3 and platelet count of 7 Patient is going to receive 1 more unit of platelets for a platelet count of 7; no overt bleeding; oncology consultation is pending; patient will be monitored closely until further recommendations from oncology service Objective - Vital Signs Vital signs: Vital Signs Temp 98.3 F 10/20/18 03:58 Pulse 74 10/20/18 03:58 Resp 16 10/20/18 03:58 BP 104/66 10/20/18 03:58 Pulse Ox 96 10/20/18 03:58 Intake & Output 10/19/18 10/20/18 10/20/18 18:59 06:59 18:59 Intake Total 419 100 Balance 419 100 Weight 91.626 kg Intake: Oral 120 100 Blood Product 299 Platelet Irr Pheresis 299 Acda1 Unit [id number] Other: Voiding Method Toilet Toilet # Voids 1 1 1 # Bowel Movements 1 1 - Exam - Constitutional General appearance: Present: average body habitus, cooperative, no acute distress - EENT Eyes: Present: anicteric sclerae, EOMI, PERRLA, normal appearance ENT: Present: hearing grossly normal, normal oropharynx Ears: bilateral: normal - Neck Neck: Present: normal ROM. Absent: lymphadenopathy, rigidity, thyromegaly Carotids: negative: bruit present Thyroid: bilateral: normal size, negative: enlarged, nodule - Respiratory Respiratory: bilateral: CTA, negative: rales, rhonchi, wheezing - Cardiovascular Rhythm: regular Heart sounds: normal: S1, S2 Abnormal Heart Sounds: Absent: systolic murmur, diastolic murmur - Gastrointestinal General gastrointestinal: Present: normal bowel sounds, soft. Absent: distended, organomegaly, tenderness - Genitourinary Genitourinary Comment(s): deferred - Integumentary Integumentary: Present: normal turgor. Absent: jaundiced, rash, ulcer - Neurologic Neurologic: Present: CNII-XII intact. Absent: focal deficits - Musculoskeletal Musculoskeletal: Present: gait normal, strength equal bilaterally - Psychiatric Psychiatric: Present: A&O x's 3, appropriate affect, intact judgment & insight - Labs CBC & Chem 7: 10/20/18 06:44 10/20/18 06:44 Labs: Abnormal Lab Results - Last 24 Hours (Table) 10/19/18 10/19/18 10/19/18 Range/Units 12:02 12:02 12:02 WBC (3.8-10.6) k/uL RBC 3.17 L (3.80-5.40) m/uL Hgb 10.1 L (11.4-16.0) gm/dL Hct 27.6 L (34.0-46.0) % RDW 19.3 H (11.5-15.5) % Plt Count 9 L* (150-450) k/uL Blast Cells % 67 H* % Neutrophils # (Manual) 0.80 L (1.3-7.7) k/uL Metamyelocytes # (Man) 0.11 H (0) k/uL Myelocytes # (Manual) 0.63 H (0) k/uL Promyelocytes # (Man) 0.63 H (0) k/uL Blast Cells # (Man) 7.04 H (0) k/uL Nucleated RBCs (0-0) /100 WBC Pathologist Review See comment A D-Dimer 23.07 H (<0.60) mg/L FEU BUN 19 H (7-17) mg/dL Glucose 120 H (74-99) mg/dL AST 40 H (14-36) U/L Urine Appearance (Clear) Urine Protein (Negative) Urine Blood (Negative) Ur Squamous Epith Cells (0-4) /hpf Urine Bacteria (None) /hpf Urine Mucus (None) /hpf 10/19/18 10/19/18 10/20/18 Range/Units 13:30 21:22 06:44 WBC 10.7 H (3.8-10.6) k/uL RBC 2.88 L 2.63 L (3.80-5.40) m/uL Hgb 8.8 L 8.3 L (11.4-16.0) gm/dL Hct 25.4 L 23.3 L (34.0-46.0) % RDW 17.1 H 17.4 H (11.5-15.5) % Plt Count 11 L* 7 L* (150-450) k/uL Blast Cells % 62 H* 69 H* % Neutrophils # (Manual) 1.20 L 0.60 L (1.3-7.7) k/uL Metamyelocytes # (Man) 0.10 H 0.21 H (0) k/uL Myelocytes # (Manual) 0.40 H 0.43 H (0) k/uL Promyelocytes # (Man) 0.30 H 0.96 H (0) k/uL Blast Cells # (Man) 6.20 H 7.38 H (0) k/uL Nucleated RBCs 3 H 1 H (0-0) /100 WBC Pathologist Review D-Dimer (<0.60) mg/L FEU BUN (7-17) mg/dL Glucose (74-99) mg/dL AST (14-36) U/L Urine Appearance Cloudy H (Clear) Urine Protein Trace H (Negative) Urine Blood Moderate H (Negative) Ur Squamous Epith Cells 10 H (0-4) /hpf Urine Bacteria Occasional H (None) /hpf Urine Mucus Few H (None) /hpf Assessment and Plan Assessment: 1. Marked thrombocytopenia - Patient is transfused with 1 unit of platelets; monitor CBC closely every 8 hours and transfuse as needed - Patient will be monitored closely for any signs of bleeding; oncology is consulted and recommendations are pending 2. Hypertension; fairly controlled on home dose of losartan and metoprolol 3. Hyperlipidemia; simvastatin 20 mg by mouth daily at bedtime 4. Asthma; not in exacerbation 5. DVT prophylaxis; SCDs only due to thrombus cytopenia CODE STATUS; full code Time with Patient: Greater than 30
[2018-10-20] MEDS: ONDANSETRON 4 MG/2 ML VIAL IVP PRN (19:25)
--- NOTE | 2018-10-20 20:24 | CT ---
EXAMINATION TYPE: CT brain wo con DATE OF EXAM: 10/20/2018 COMPARISON: None HISTORY: 57-year-old female Headache and decreased platelets. TECHNIQUE: Examination was done in axial plane without intravenous contrast. Coronal and sagittal r econstructions performed. CT DLP: 1121.8 mGycm Automated exposure control for dose reduction was used. FINDINGS: There is no evidence of acute intracranial hemorrhage, acute ischemic changes, mass, mass-effect, or extra-axial fluid collection. There is no effacement of cerebral sulci or basal subarachnoid cister ns. There is no hydrocephalus. There is no midline shift. Lemos-white matter distinction is preserv ed. Mild to moderate lobulated mucosal thickening left maxillary sinus and mild in the right maxillary si nus. Orbits and globes appear intact. Mastoid air cells are well pneumatized. There is an empty sella with prominent enlargement of the sella turcica. Mild bifrontal atrophy. IMPRESSION: 1. Empty sella with prominent bony remodeling and enlargement of the sella. Correlate for any clinica l signs or symptoms of increased intracranial pressures such as papilledema. Idiopathic intracranial hypertension is in the differential. 2. Otherwise, no acute intracranial abnormality seen.
--- NOTE | 2018-10-20 20:35 | P.CONS ---
History of Present Illness - Reason for Consult Consult date: 10/19/18 Blasts on smear, thrombocytopenia - Chief Complaint Fatigue and easy bruising - History of Present Illness Ms. Valencia is a very pleasant 57 yo female with no significant PMH who is here for fatigue and easy bruising. She has felt well until a few weeks ago, when she developed URI symptoms, with congestions and bilateral ear pain. Diagnosed with ear infection and treated with antibiotics and steroids. She also noticed easy bruising at that time and fatigue. Overall she improved, however easy bruising persisted, and she again began to have increasing fatigue with BLAND, leading to her ER visit. She denies any fevers or night sweats. Had night sweats and hot flashes in the past when she was perimenopausal, however not recently. She has had about 20 pound weight loss over the past 6 months with diet and exercise. No dietary restrictions, although she did adjust her diet to decrease portions and lose weight. She also has been having a headache, mild. No other complaints. She otherwise is active and went to [place] over the winter, after her last physical in 02/2018,at which time CBC was normal. In the ER, CBC showed WBC 10, Hgb 10 from 14 in 02/2018, and plt 9 from 200's in 02/2018. Differential did reveal 65% blasts, and smear suggestive of myeloid blasts, no brenda rods. D-dimer was elevated and CT/PE was done, negative. She received a unit of platelet transfusion and was admitted for further care. No smoking, rare alcohol (nothing recently over the past 6+ months) and no drugs. 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 Family history includes prostate cancer in her father at 82 yo, and prior lymphoma in her father during his 70's, as well as sister Zunilda with what sounds like polycythemia, sees Dr. Zabala. Review of Systems All systems: negative Constitutional: Reports as per HPI Past Medical History Past Medical History: Asthma, Hyperlipidemia, Hypertension Additional Past Medical History / Comment(s): She denies past liver problems but had slightly abnormal liver tests done by Dr. Jessica in 2017 per the patient. 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 History of Any Multi-Drug Resistant Organisms: None Reported Additional Past Surgical History / Comment(s): D&C 2013, colonoscopy 10/2016. Past Psychological History: No Psychological Hx Reported Smoking Status: Never smoker Past Alcohol Use History: Occasional Past Drug Use History: None Reported - Past Family History Father Family Medical History: Cancer Additional Family Medical History / Comment(s): LYMPHOMA Mother Family Medical History: Hyperlipidemia, Hypertension, Skin Disorder Additional Family Medical History / Comment(s): Psoriasis. Medications and Allergies Home Medications Medication Instructions Recorded Confirmed Type Losartan [Cozaar] 25 mg PO DAILY 07/17/17 10/19/18 History Metoprolol Tartrate [Lopressor] 25 mg PO BID 07/17/17 10/19/18 History Simvastatin [Zocor] 20 mg PO HS 07/17/17 10/19/18 History Calcium Carbonate [Calcium] 600 mg PO DAILY 10/19/18 10/19/18 History Lifitegrast [Xiidra] 1 drop BOTH EYES BID 10/19/18 10/19/18 History Allergies Allergy/AdvReac Type Severity Reaction Status Date / Time cephalexin [From Keflex] AdvReac Severe Nausea & Verified 10/19/18 12:13 Vomiting metronidazole [From Flagyl] AdvReac Severe Nausea & Verified 10/19/18 12:13 Vomiting shellfish derived [Shellfish] AdvReac Vomiting Verified 10/19/18 12:13 Physical Exam Vitals: Vital Signs Temp Pulse Pulse Pulse Resp BP BP 10/20/18 03:58 98.3 F 74 16 104/66 10/19/18 21:00 98.3 F 85 16 128/73 10/19/18 16:10 98.5 F 83 18 129/80 10/19/18 16:00 81 16 10/19/18 15:32 98.6 F 85 18 132/85 10/19/18 15:22 98.6 F 88 18 136/86 10/19/18 15:15 98.6 F 81 16 116/83 10/19/18 15:12 98.3 F 81 16 147/72 10/19/18 11:19 99.1 F 92 18 133/90 Pulse Ox 10/20/18 03:58 96 10/19/18 21:00 94 L 10/19/18 16:10 98 10/19/18 16:00 10/19/18 15:32 97 10/19/18 15:22 97 10/19/18 15:15 95 10/19/18 15:12 99 10/19/18 11:19 98 Intake and Output 10/19/18 10/20/18 10/20/18 22:59 06:59 14:59 Intake Total 519 Balance 519 Intake: Oral 220 Blood Product 299 Platelet Irr Pheresis 299 Acda1 Unit [id number] Other: Voiding Method Toilet # Voids 1 1 1 # Bowel Movements 1 1 General: In no acute distress. HEENT: EOMI. Mucosa moist. Neck: Neck supple. Lymph: No cervical/supraclavicular LAD. Lungs: CTA-B without wheezing or rhonchi. Heart: RRR. No LE edema. Abdomen: Soft, nontender, nondistended, with positive bowel sounds. MSK: 4/4 strength in all 4 extremities. Neuro: Alert and oriented 3. No obvious gross neurologic deficits. Skin: No jaundice or rash. She does have bruising on bilateral UE and LE as well as on her abdomen. Psych: Appropriate affect. Results CBC & Chem 7: 10/20/18 06:44 10/20/18 06:44 Labs: Abnormal Lab Results - Last 24 Hours (Table) 10/19/18 10/19/18 10/19/18 Range/Units 12:02 12:02 12:02 WBC (3.8-10.6) k/uL RBC 3.17 L (3.80-5.40) m/uL Hgb 10.1 L (11.4-16.0) gm/dL Hct 27.6 L (34.0-46.0) % RDW 19.3 H (11.5-15.5) % Plt Count 9 L* (150-450) k/uL Blast Cells % 67 H* % Neutrophils # (Manual) 0.80 L (1.3-7.7) k/uL Metamyelocytes # (Man) 0.11 H (0) k/uL Myelocytes # (Manual) 0.63 H (0) k/uL Promyelocytes # (Man) 0.63 H (0) k/uL Blast Cells # (Man) 7.04 H (0) k/uL Nucleated RBCs (0-0) /100 WBC Pathologist Review See comment A D-Dimer 23.07 H (<0.60) mg/L FEU BUN 19 H (7-17) mg/dL Glucose 120 H (74-99) mg/dL AST 40 H (14-36) U/L Urine Appearance (Clear) Urine Protein (Negative) Urine Blood (Negative) Ur Squamous Epith Cells (0-4) /hpf Urine Bacteria (None) /hpf Urine Mucus (None) /hpf 10/19/18 10/19/18 10/20/18 Range/Units 13:30 21:22 06:44 WBC 10.7 H (3.8-10.6) k/uL RBC 2.88 L 2.63 L (3.80-5.40) m/uL Hgb 8.8 L 8.3 L (11.4-16.0) gm/dL Hct 25.4 L 23.3 L (34.0-46.0) % RDW 17.1 H 17.4 H (11.5-15.5) % Plt Count 11 L* 7 L* (150-450) k/uL Blast Cells % 62 H* 69 H* % Neutrophils # (Manual) 1.20 L 0.60 L (1.3-7.7) k/uL Metamyelocytes # (Man) 0.10 H 0.21 H (0) k/uL Myelocytes # (Manual) 0.40 H 0.43 H (0) k/uL Promyelocytes # (Man) 0.30 H 0.96 H (0) k/uL Blast Cells # (Man) 6.20 H 7.38 H (0) k/uL Nucleated RBCs 3 H 1 H (0-0) /100 WBC Pathologist Review D-Dimer (<0.60) mg/L FEU BUN (7-17) mg/dL Glucose (74-99) mg/dL AST (14-36) U/L Urine Appearance Cloudy H (Clear) Urine Protein Trace H (Negative) Urine Blood Moderate H (Negative) Ur Squamous Epith Cells 10 H (0-4) /hpf Urine Bacteria Occasional H (None) /hpf Urine Mucus Few H (None) /hpf Chest x-ray: report reviewed CT scan - chest: report reviewed Assessment and Plan Assessment: 1. Bicytopenia, anemia and thrombocytopenia 2. Blasts on smear, concern for AML 3. Fatigue and easy bruising, likely due to bicytopenia 4. Headache, likely due to anemia Plan: Ms. Valencia is a very pleasant 57 yo female with no significant PMH who is here for easy bruising and fatigue that recurred after antibiotics for URI a couple weeks ago, found to have new onset bicytopenia and 65% blasts on smear. CBC changes very concerning for acute leukemia. She will need a BMB-A, plan for Sunday. In the meantime, will plan on obtaining cytopenia work up to rule out other possible contributing etiology. Recommend supportive transfusion for Hgb >7 and plt >15 or bleeding. If other work up unremarkable, pt will need 2D echo and central venous line placement in anticipation of induction chemotherapy. If she is stable, she could potentially be discharged with close follow up later this week in the clinic to monitor blood counts and discuss biopsy results and treatment recommendations. Discussed with pt and she is agreeable to the plan. All questions were a nswered.
[2018-10-20] MEDS: BUTALB/APAP/CAFF 50-325-40MG TAB PO PRN (20:58)
[2018-10-20] MEDS: ATORVASTATIN 10 MG TAB PO SCH (20:59)
[2018-10-20 21:10] LABS: Anisocytosis Slight; HCT 25.1 % (34.0-46.0); Hyperchromasia Slight; MCH 31.7 pg (25.0-35.0); MCHC 35.8 g/dL (31.0-37.0); MCV 88.5 fL (80.0-100.0); Mean Platelet Volume 8.2; Poikilocytosis Slight; RBC 2.83 m/uL (3.80-5.40); RDW 19.1 % (11.5-15.5); WBC 23.3 k/uL (3.8-10.6)
[2018-10-20 21:13] LABS: Platelet Count 16 k/uL (150-450)
[2018-10-21] MEDS: CALCIUM CARBONATE 500 MG CHEWABLE PO SCH (07:22)
[2018-10-21] MEDS: BUTALB/APAP/CAFF 50-325-40MG TAB PO PRN ×2 (07:22→20:08)
[2018-10-21] MEDS: NON-FORMULARY DRUG (Lifitegrast [Xiidra] 1 DROP) BOTH EYES SCH ×2 (07:22→22:32)
[2018-10-21] MEDS: LOSARTAN 25 MG TAB PO SCH (07:22)
[2018-10-21] MEDS: METOPROLOL TARTRATE 25 MG TAB PO SCH ×2 (07:22→22:31)
[2018-10-21] MEDS: ONDANSETRON 4 MG/2 ML VIAL IVP PRN (07:24)
[2018-10-21] MEDS ORDERED: PANTOPRAZOLE 40 MG TABLET PO SCH (07:30)
--- NOTE | 2018-10-21 08:38 | P.PN ---
Subjective Progress Note Date: 10/21/18 Principal diagnosis: This is a continue present 57-year-old white female essentially admitted for bicytopenia. The patient is probably getting bone marrow biopsy soon to elucidate possible AML. She feels fatigued but her headache is improved. No other voiding difficulties. As per HPI Objective - Vital Signs Vital signs: Vital Signs Temp 98.0 F 10/21/18 05:00 Pulse 60 10/21/18 05:00 Resp 16 10/21/18 05:00 BP 124/82 10/21/18 05:00 Pulse Ox 94 L 10/21/18 05:00 Intake & Output 10/20/18 10/21/18 10/21/18 18:59 06:59 18:59 Intake Total 1741 Balance 1741 Intake: Oral 1440 Blood Product 301 Platelet Irr Pheresis 301 Acda1 Unit [id number] Other: Voiding Method Toilet Toilet Toilet # Voids 4 1 # Bowel Movements 1 - Constitutional General appearance: Present: average body habitus - EENT Eyes: Absent: abnormal pupil - Respiratory Respiratory: bilateral: diminished - Cardiovascular Rhythm: regular Heart sounds: normal: S1, S2 Abnormal Heart Sounds: Absent: S3 Gallop - Gastrointestinal General gastrointestinal: Present: soft. Absent: tenderness - Neurologic Neurologic: Present: CNII-XII intact - Musculoskeletal Musculoskeletal: Present: generalized weakness - Psychiatric Psychiatric: Present: A&O x's 3, appropriate affect - Labs CBC & Chem 7: 10/20/18 20:29 10/20/18 06:44 Labs: Abnormal Lab Results - Last 24 Hours (Table) 10/19/18 10/20/18 10/20/18 Range/Units 21:22 06:44 20:29 WBC 10.7 H 23.3 H (3.8-10.6) k/uL RBC 2.83 L (3.80-5.40) m/uL Hgb 9.0 L (11.4-16.0) gm/dL Hct 25.1 L (34.0-46.0) % RDW 19.1 H (11.5-15.5) % Plt Count 16 L* D (150-450) k/uL Blast Cells % 62 H* 69 H* % Neutrophils # (Manual) 1.20 L 0.60 L (1.3-7.7) k/uL Metamyelocytes # (Man) 0.10 H 0.21 H (0) k/uL Myelocytes # (Manual) 0.40 H 0.43 H (0) k/uL Promyelocytes # (Man) 0.30 H 0.96 H (0) k/uL Blast Cells # (Man) 6.20 H 7.38 H (0) k/uL Nucleated RBCs 3 H 1 H (0-0) /100 WBC Assessment and Plan (1) AML (acute myeloblastic leukemia) Current Visit: Yes Status: Acute Code(s): C92.00 - ACUTE MYELOBLASTIC LEUKEMIA, NOT HAVING ACHIEVED REMISSION SNOMED Code(s): 68161642 (2) Thrombocytopenia Current Visit: Yes Status: Acute Code(s): D69.6 - THROMBOCYTOPENIA, U NSPECIFIED SNOMED Code(s): 108562608 Plan: Await bone marrow biopsy. Check CBC in a.m. Appreciate oncology input. Time with Patient: Greater than 30
[2018-10-21 10:48] LABS: Anisocytosis Slight; HCT 25.8 % (34.0-46.0); HGB 9.2 gm/dL (11.4-16.0); MCH 31.5 pg (25.0-35.0); MCHC 35.4 g/dL (31.0-37.0); MCV 88.9 fL (80.0-100.0); Mean Platelet Volume 7.7; Poikilocytosis Slight; RBC 2.91 m/uL (3.80-5.40); RDW 18.8 % (11.5-15.5)
[2018-10-21 10:55] LABS: Platelet Count 9 k/uL (150-450)
[2018-10-21 11:09] LABS: ALT 21 U/L (9-52); AST 29 U/L (14-36); African American GFR (CKD) >90 (>60 ml/min/1.73 sqM); Albumin 4.5 g/dL (3.5-5.0); Alkaline Phosphatase 76 U/L (38-126); Anion Gap 8 mmol/L; Blood Urea Nitrogen 16 mg/dL (7-17); Calcium 9.9 mg/dL (8.4-10.2); Carbon Dioxide 30 mmol/L (22-30); Chloride 104 mmol/L (98-107); Glucose 107 mg/dL (74-99); Potassium 3.8 mmol/L (3.5-5.1); Sodium 142 mmol/L (137-145); Total Bilirubin 0.7 mg/dL (0.2-1.3); Total Protein 7.6 g/dL (6.3-8.2)
[2018-10-21 11:23] LABS: INR 1.1 (<1.2); Partial Thromboplastin Time 21.8 sec (22.0-30.0); Prothrombin Time 11.8 sec (9.0-12.0)
[2018-10-21 12:09] LABS: Band Neutrophils % 2 %; Metamyelocytes % 2 %; Myelocytes % 3 %; Neutrophils % (M) 5 %; Promyelocytes % 13 %
[2018-10-21 12:10] LABS: Blast Cells # (M) 7.25 k/uL (0); Lymphocytes # (M) 2.87 k/uL (1.0-4.8); Monocytes # (M) 1.51 k/uL (0-1.0); Myelocytes # (M) 0.45 k/uL (0); Nucleated Red Blood Cells 1 /100 WBC (0-0); Promyelocytes # (M) 1.96 k/uL (0); Total Cells Counted 200; WBC 15.1 k/uL (3.8-10.6)
[2018-10-21] MEDS ORDERED: fentaNYL (PF) 50 MCG/ML 2 ML AMP ONE (12:45)
[2018-10-21] MEDS ORDERED: MIDAZOLAM 2 MG/2 ML VIAL ONE (12:45)
[2018-10-21] MEDS ORDERED: PROPOFOL 10 MG/ML 20 ML VIAL IV ONE (12:45)
[2018-10-21] MEDS ORDERED: LIDOCAINE 1% INJ 10MG/ML (20 ML MDV) ONE (12:45)
[2018-10-21] MEDS ORDERED: LACTATED RINGERS 1,000 ML IV ONE (12:53)
[2018-10-21 13:50] LABS: Reticulocyte % 2.8 % (0.5-2.0)
--- NOTE | 2018-10-21 14:02 | P.PN ---
Subjective Progress Note Date: 10/21/18 Principal diagnosis: Bicytopenia, Leukocytosis PLan for Bone marrow biopsy today with Dr. Zabala. Objective - Vital Signs Vital signs: Vital Signs Temp 98 F 10/21/18 13:23 Pulse 71 10/21/18 13:51 Resp 15 10/21/18 13:23 BP 103/71 10/21/18 13:51 Pulse Ox 99 10/21/18 13:51 Intake & Output 10/20/18 10/21/18 10/21/18 18:59 06:59 18:59 Intake Total 1741 200 Balance 1741 200 Intake: IV 200 Oral 1440 Blood Product 301 Platelet Irr Pheresis 301 Acda1 Unit [id number] Other: Voiding Method Toilet Toilet Toilet # Voids 4 1 # Bowel Movements 1 - Exam General: Alert and Oriented x3, No Acute Distress Head: Normocytic, Atraumatic Neck: Supple Mouth: No Lesions, No Thrush Eyes: Non-sclerotic No Palpable cervical, supraclavicular, axillary adenopathy Heart: Regular Rate, Regular Rhythm Lungs: Clear to Ausculations, No Wheeze, No Rhonchi, Diminishe bilateral lower lobes, No increased respiratory effort noted Abdomen: Soft, Non-Distended, Non-Tended, BSx4 Extremities: No Edema, Equal Strength Neurological: No Focal Defects: No sensory or motor deficits noted Psych: Calm and cooperative - Labs CBC & Chem 7: 10/21/18 10:06 10/21/18 10:06 Labs: Abnormal Lab Results - Last 24 Hours (Table) 10/20/18 10/20/18 10/21/18 Range/Units 06:44 20:29 10:06 WBC 23.3 H (3.8-10.6) k/uL RBC 2.83 L (3.80-5.40) m/uL Hgb 9.0 L (11.4-16.0) gm/dL Hct 25.1 L (34.0-46.0) % RDW 19.1 H (11.5-15.5) % Plt Count 16 L* D (150-450) k/uL Blast Cells % 69 H* % Neutrophils # (Manual) (1.3-7.7) k/uL Monocytes # (Manual) (0-1.0) k/uL Metamyelocytes # (Man) (0) k/uL Myelocytes # (Manual) (0) k/uL Promyelocytes # (Man) (0) k/uL Blast Cells # (Man) (0) k/uL Nucleated RBCs (0-0) /100 WBC Retic Count (0.5-2.0) % APTT 21.8 L (22.0-30.0) sec Glucose (74-99) mg/dL 10/21/18 10/21/18 Range/Units 10:06 10:06 WBC 15.1 H (3.8-10.6) k/uL RBC 2.91 L (3.80-5.40) m/uL Hgb 9.2 L (11.4-16.0) gm/dL Hct 25.8 L (34.0-46.0) % RDW 18.8 H (11.5-15.5) % Plt Count 9 L* (150-450) k/uL Blast Cells % 48 H* % Neutrophils # (Manual) 1.00 L (1.3-7.7) k/uL Monocytes # (Manual) 1.51 H (0-1.0) k/uL Metamyelocytes # (Man) 0.30 H (0) k/uL Myelocytes # (Manual) 0.45 H (0) k/uL Promyelocytes # (Man) 1.96 H (0) k/uL Blast Cells # (Man) 7.25 H (0) k/uL Nucleated RBCs 1 H (0-0) /100 WBC Retic Count 2.8 H (0.5-2.0) % APTT (22.0-30.0) sec Glucose 107 H (74-99) mg/dL Assessment and Plan (1) Normochromic anemia Current Visit: Yes Status: Acute Code(s): D64.9 - ANEMIA, UNSPECIFIED SNOMED Code(s): 72413531 (2) Thrombocytopenia Current Visit: Yes Status: Acute Code(s): D69.6 - THROMBOCYTOPENIA, UNSPECIFIED SNOMED Code(s): 356855314 Plan: Assessment and recpommendations: Normocytic Anemia: - Transfuse for Hemoglobin less than 7. Thrombocytopenia: - Transfuse for platlets less than 10, and irradiated products only in anticipation for an uncerlying bine marrow disorder diagnosis Leukocytosis: Evidence of Blast Cells in Peripheral Blood Plan: bone Marrow biopsy today, plan for Central Line access in anticipation of induction chemotherapy - Check LDH, Phos, CMP, CBC, Uric Acid Long discussion with patient and friend, willl await results of biopsy and plan treatment based on these results
--- NOTE | 2018-10-21 14:35 | P.CNNES ---
History of Present Illness Consult date: 10/21/18 Requesting physician: Brandon De León Reason for Consult: Headache Chief complaint: Headache x1 week History of Present Illness: This is a 57-year-old right-handed female who presented with fatigue and easy bruising. She apparently felt well until a few weeks prior when she developed upper respiratory infection symptoms, nasal congestion and bilateral ear pain. Patient was diagnosed with an ear infection and treated with antibiotics and steroids. She did have night sweats and hot flashes in the past in the context of perimenopause. She denies any current constitutional symptoms. She did have around a 20 pound weight loss that was intentional through diet and exercise. While in the ER, she was noted to have significant frontal cytopenia with platelets of 9. Her CBC with differential showed 65% blasts, peripheral smear was suggestive of myeloid blasts. She also complained of around a 1 week history of bitemporal and by suboccipital pressure and throbbing pain. She did have nausea associated with it but no photosonophobia, aura, prodrome, vertigo, associated focal numbness or weakness, worsening of pain with exertion or Valsalva or up on assuming a supine position. There is also no associated tongue or jaw claudication or pain on mastication. Her pain was substantially improved with Fioricet. She denies other neurological symptoms such as seizure, decreased level or loss of consciousness, confusion, diplopia, amaurosis, transient monocular visual loss, facial numbness or droop, dysarthria, dysphagia, aphasia, focal numbness or weakness, tremors, bowel or bladder incontinence or ataxia. Because of her new onset headache, she underwent a CT of the head that showed an empty sella for which I was asked to formally consult on this patient. Review of Systems I have performed a 14-point organ ROS with patient that are negative except as per HPI. Past Medical History Past Medical History: Asthma, Hyperlipidemia, Hypertension Additional Past Medical History / Comment(s): She denies past liver problems but had slightly abnormal liver tests done by Dr. Jessica in 2017 per the patient. 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 History of Any Multi-Drug Resistant Organisms: None Reported Additional Past Surgical History / Comment(s): D&C 2013, colonoscopy 10/2016. Past Psychological History: No Psychological Hx Reported Smoking Status: Never smoker Past Alcohol Use History: Occasional Past Drug Use History: None Reported - Past Family History Father Family Medical History: Cancer Additional Family Medical History / Comment(s): LYMPHOMA Mother Family Medical History: Hyperlipidemia, Hypertension, Skin Disorder Additional Family Medical History / Comment(s): Psoriasis. Medications and Allergies Home Medications Medication Instructions Recorded Confirmed Type Losartan [Cozaar] 25 mg PO DAILY 07/17/17 10/19/18 History Metoprolol Tartrate [Lopressor] 25 mg PO BID 07/17/17 10/19/18 History Simvastatin [Zocor] 20 mg PO HS 07/17/17 10/19/18 History Calcium Carbonate [Calcium] 600 mg PO DAILY 10/19/18 10/19/18 History Lifitegrast [Xiidra] 1 drop BOTH EYES BID 10/19/18 10/19/18 History Allergies Allergy/AdvReac Type Severity Reaction Status Date / Time cephalexin [From Keflex] AdvReac Severe Nausea & Verified 10/19/18 12:13 Vomiting metronidazole [From Flagyl] AdvReac Severe Nausea & Verified 10/19/18 12:13 Vomiting shellfish derived [Shellfish] AdvReac Vomiting Verified 10/19/18 12:13 Physical Examination - Vital Signs Vital Signs: Vital Signs Temp Pulse Pulse Resp BP BP Pulse Ox 10/21/18 13:51 71 103/71 99 10/21/18 13:36 74 107/73 93 L 10/21/18 13:23 98 F 78 15 104/69 91 L 10/21/18 11:44 98.7 F 79 16 110/73 96 10/21/18 09:21 98.7 F 79 16 110/73 96 10/21/18 05:00 98.0 F 60 16 124/82 94 L 10/20/18 23:20 16 10/20/18 20:30 98.5 F 87 16 118/76 94 L 10/20/18 16:00 73 16 10/20/18 15:46 97.8 F 77 16 140/76 97 10/20/18 15:16 98.4 F 83 16 125/74 94 L 10/20/18 15:06 98.1 F 84 16 130/76 95 Intake and Output 10/20/18 10/21/18 10/21/18 22:59 06:59 14:59 Intake Total 541 200 Balance 541 200 Intake: IV 200 Oral 240 Blood Product 301 Platelet Irr Pheresis 301 Acda1 Unit [id number] Other: Voiding Method Toilet Toilet Toilet # Voids 1 1 # Bowel Movements 1 Gen NAD Pleasant and cooperative HEENT NCAT Sclera without icterus O/P clear Neck Supple No carotid bruit Cor RRR no m/r/g Lungs CTAB Abd Soft NTND +BS Ext Warm to touch No edema Skin Numerous areas of ecchymosis in limbs Neuro MS A+Ox4 Normal fluency Able to follow all commands CN PERRL No papilledema seen VFF no APD EOMI no nystagmus or NANCIE No facial asymmetry Masseter's symmetric Hearing intact to normal voice bilaterally Speech not dysarthric Equal elevation of palate Tongue midline Sym shrug and SCM bilaterally Motor Normal bulk/tone No pronator drift or tremors Strength 5/5 sym throughout Sens Intact to LT x4 No neglect Coord No dysmetria on FTN bilaterally DTRs 2+/4 sym throughout Toes downgoing bilaterally No clonus at achilles Gait Deferred Results - Laboratory Findings CBC and BMP: 10/21/18 10:06 10/21/18 10:06 Abnormal Lab Findings: Abnormal Labs 10/19/18 10/19/18 10/19/18 12:02 12:02 12:02 WBC RBC 3.17 L Hgb 10.1 L Hct 27.6 L RDW 19.3 H Plt Count 9 L* Blast Cells % 67 H* Neutrophils # (Manual) 0.80 L Monocytes # (Manual) Metamyelocytes # (Man) 0.11 H Myelocytes # (Manual) 0.63 H Promyelocytes # (Man) 0.63 H Blast Cells # (Man) 7.04 H Nucleated RBCs Pathologist Review See comment A Retic Count APTT D-Dimer 23.07 H BUN 19 H Glucose 120 H AST 40 H Urine Appearance Urine Protein Urine Blood Ur Squamous Epith Cells Urine Bacteria Urine Mucus 10/19/18 10/19/18 10/20/18 13:30 21:22 06:44 WBC 10.7 H RBC 2.88 L 2.63 L Hgb 8.8 L 8.3 L Hct 25.4 L 23.3 L RDW 17.1 H 17.4 H Plt Count 11 L* 7 L* Blast Cells % 62 H* 69 H* Neutrophils # (Manual) 1.20 L 0.60 L Monocytes # (Manual) Metamyelocytes # (Man) 0.10 H 0.21 H Myelocytes # (Manual) 0.40 H 0.43 H Promyelocytes # (Man) 0.30 H 0.96 H Blast Cells # (Man) 6.20 H 7.38 H Nucleated RBCs 3 H 1 H Pathologist Review Retic Count APTT D-Dimer BUN Glucose AST Urine Appearance Cloudy H Urine Protein Trace H Urine Blood Moderate H Ur Squamous Epith Cells 10 H Urine Bacteria Occasional H Urine Mucus Few H 10/20/18 10/21/18 10/21/18 20:29 10:06 10:06 WBC 23.3 H RBC 2.83 L Hgb 9.0 L Hct 25.1 L RDW 19.1 H Plt Count 16 L* D Blast Cells % Neutrophils # (Manual) Monocytes # (Manual) Metamyelocytes # (Man) Myelocytes # (Manual) Promyelocytes # (Man) Blast Cells # (Man) Nucleated RBCs Pathologist Review Retic Count APTT 21.8 L D-Dimer BUN Glucose 107 H AST Urine Appearance Urine Protein Urine Blood Ur Squamous Epith Cells Urine Bacteria Urine Mucus 10/21/18 10:06 WBC 15.1 H RBC 2.91 L Hgb 9.2 L Hct 25.8 L RDW 18.8 H Plt Count 9 L* Blast Cells % 48 H* Neutrophils # (Manual) 1.00 L Monocytes # (Manual) 1.51 H Metamyelocytes # (Man) 0.30 H Myelocytes # (Manual) 0.45 H Promyelocytes # (Man) 1.96 H Blast Cells # (Man) 7.25 H Nucleated RBCs 1 H Pathologist Review Retic Count 2.8 H APTT D-Dimer BUN Glucose AST Urine Appearance Urine Protein Urine Blood Ur Squamous Epith Cells Urine Bacteria Urine Mucus - Diagnostic Findings Additional findings: CT Head wo cont 10/21/18. Empty sella with prominent bony remodeling and enlargement of the sella. No other acute intracranial abnormalities are seen. I have reviewed all neuroimages myself. Assessment and Plan Assessment: New-onset headache, presentation consistent with tension. No clinical S+S to suggest increased ICP. Empty sella on CT Head, likely normal variant. Plan: -Discussed in detail DDx of headache especially secondary causes. -At this point, her presentation is not consistent with increased ICP. -Would not recommend LP. Her plts are quite low so would be risky to proceed unless we have strong clinical suspicion for increased ICP or SENIOR DATA ANALYST infection, which I do not at this point. -Can continue using Fioricet prn but ideally no more than 2 days/week to minimize medication overuse/rebound phenomenon. -d/w patient and in detail. All questions answered. -No further inpatient neuro recs at this time. Will sign off. Please call with new questions. Thank you for this consultation. Please call with ?. Time with Patient: Greater than 30 (Time spent in direct patient care, greater than 50% of which was spent in [id number] counseling and coordination of care: 70 minutes.)
--- NOTE | 2018-10-21 15:00 | PCN ---
PROCEDURE NOTE DATE OF SERVICE: 10/21/2018. PROCEDURE: Bone marrow aspirate and biopsy. INDICATION: Suspected acute leukemia. After obtaining consent from the patient, the procedure was performed in the endoscopy suite under general anesthesia, performed by anesthesia team. The patient was put in the left lateral decubitus position. The right posterior superior iliac crest was localized. Skin was cleansed with ChloraPrep, all sterile procedures were followed; 2% Xylocaine was used for local anesthetic. 1 inch needle was inserted. It was very difficult to obtain an aspirate, likely due to packed bone marrow was found. Obtained about 1 mL aspirate with obtained. However, 1.57 cm core biopsy was obtained without any difficulties, pressure applied. Next afterward there was negligible blood loss. Patient tolerated procedure very well without any immediate complications. MMODL / IJN: [id number] /
[2018-10-21 16:31] LABS: Folate, Serum 11.2 ng/mL
[2018-10-21 19:24] LABS: HIV 1 AB Non-Reactive (Non-Reactive); HIV AB P24 Non-Reactive (Non-Reactive); HIV P24 AG Non-Reactive (Non-Reactive)
[2018-10-21] MEDS: MAG HYDROX/AL HYDROX/SIMETH 30 ML, LIDOCAINE VISCOUS 30 ML, diphenhydrAMINE ELIXIR 75 M... PO SCH ×8 (20:09→22:32)
[2018-10-21 20:21] LABS: Glucose,Whole Blood 161 mg/dL (75-99)
[2018-10-21] MEDS ORDERED: SENNOSIDES-DOCUSATE SODIUM 1 EACH TAB PO SCH (21:00)
--- NOTE | 2018-10-21 21:29 | CT ---
EXAMINATION TYPE: CT brain cspine wo con DATE OF EXAM: 10/21/2018 COMPARISON: Head CT scan yesterday HISTORY: Fall with head injury x2. CT DLP: 1586 mGycm Automated exposure control for dose reduction was used. TECHNIQUE: CT scan of the head and cervical spine are performed without contrast. FINDINGS: Ventricles of normal size. There is no mass effect nor midline shift. Calvarium is intact . There is small right posterior frontal subdural acute hemorrhage. This measures up to 6 mm in thick ness. . Exam limited slightly by artifact. There is a large empty sella turcica. Cervical vertebra have normal alignment. Skull base is intact. Posterior elements are intact. There i s no evidence of a fracture. I see no bony destructive process. There is some spurring in the upper t horacic spine. IMPRESSION: There is an acute subdural hematoma over the right posterior frontal lobe convexity. Small right marimar etal scalp hematoma noted. This appears new compared to yesterday. Negative CT scan cervical spine. No fracture. This exam was discussed with Dr. Jessica at 9:30 PM.
[2018-10-21 21:55] LABS: Glucose,Whole Blood 236 mg/dL (75-99)
[2018-10-21] MEDS ORDERED: SALT AND SODA MOUTHWASH 1,000 ML PO SCH (22:00)
[2018-10-21 22:03] LABS: Anisocytosis Slight; HCT 21.2 % (34.0-46.0); Hyperchromasia Slight; MCH 30.8 pg (25.0-35.0); MCHC 34.9 g/dL (31.0-37.0); MCV 88.1 fL (80.0-100.0); Mean Platelet Volume 10.2; Poikilocytosis Slight; RDW 17.2 % (11.5-15.5); WBC 38.8 k/uL (3.8-10.6)
[2018-10-21 22:11] LABS: HGB 7.4 gm/dL (11.4-16.0); Platelet Count 13 k/uL (150-450)
[2018-10-21] MEDS ORDERED: NALOXONE 0.4 MG/ML 1 ML VIAL IV PRN (22:27)
[2018-10-21] MEDS ORDERED: SODIUM CHLORIDE 0.9% 500 ML 500 ML IV ONE (22:27)
[2018-10-21] MEDS ORDERED: NOREPINEPHRINE 4 MG in SODIUM CHLORIDE 0.9% 250 ML IV SCH (22:30)
[2018-10-21 22:31] VITALS: TEMP 97.7
[2018-10-21] MEDS: ATORVASTATIN 10 MG TAB PO SCH (22:32)
[2018-10-21] MEDS ORDERED: ROCURONIUM BROMIDE 10 MG/ML 10 ML VIAL IV ONE (22:50)
[2018-10-21] MEDS ORDERED: ETOMIDATE 2 MG/ML 10 ML VIAL ONE (22:50)
--- NOTE | 2018-10-21 23:40 | XR ---
EXAM: XR Chest, 1 View CLINICAL HISTORY: ITS.REASON XR Reason: Tube placement TECHNIQUE: Frontal view of the chest. COMPARISON: Portal chest radiograph 12/19/11 FINDINGS: Endotracheal tube has its tip projecting to the level of thoracic aortic arch approximately 2.8 cm above level of kathya. Nasogastric tube extends into the stomach. Multiple other monitoring leads project over lower chest. Heart size upper limits of normal. Mediastinal structures are unremarkable. Low lung volumes. No focal pulmonary infiltrates or consolidations. Minimal left pleural effusion. No evidence of pneumothorax. IMPRESSION: Endotracheal and nasogastric tubes as described in body of report. Minimal left pleural effusion.
[2018-10-21 23:43] VITALS: RESP 18
[2018-10-21 23:56] VITALS: BP 93/62; PULSE 120
--- NOTE | 2018-10-22 12:40 | P.PN ---
Progress Note - Text Progress Note Date: 10/22/18 I spoke to [facility] Trauma surgeon and RN who will pass our number to sign shop supervisor oncologist there. Patient is responding and stable per the . Explained the preliminary results of bone marrow biopsy to the via phone. DX: Consistent with Acute Promyelocytic Leukemia -- High Risk recommend Induction at outside facility and then may transgfer back for consolidation if remission is acheived to follow-up with Dr. Luis Zabala
--- NOTE | 2018-10-23 02:12 | CDI ---
Documentation Clarification Form Date: 10/23/18 From: Tereso Luciano Phone: call to [phone] Admit Date: 10/19/2018 1:21:00 PM Patient Name: Yomaira Valencia Visit Number: [id number] Discharge Date: 10/21/2018 11:30:00 PM ATTENTION: The Clinical Documentation Specialists (CDI) and [facility] Coding Staff appreciate your assistance in clarifying documentation. Please respond to the clarification below the line at the bottom and electronically sign. The CDI & [facility] Coding staff will review the response and follow-up if needed. Please note: Queries are made part of the Legal Health Record. If you have any questions, please contact the author of this message via ITS. Dr. Tan Jessica, The patient was admitting with a diagnosis of Anemia, Thrombocytopenia. bicytopenia and thrombocytopenia has been documented in the 10/20 consult note and 10/21 progress note. History/Risk factors:Anemia, Thrombocytopenia, Bicytopenia. Labs: WBC 10.7, 23.3, RBC:3.17L,2.8L Hgb:8.3 Plateletes: count of 7 & 9 Treatment: Platelet Transfusion. In your professional opinion, can you please clarify if these findings signify one of the following conditions? Pancytopenia (Ruled in or Ruled out) Other condition, please specify ____ Unable to determine anemia and thrombocytopenia related to leukemia provisional diagnosis MTDD
--- NOTE | 2018-11-10 15:21 | P.DS ---
Providers Date of admission: 10/19/18 13:21 Attending physician: Tan Jessica Consults: 10/19/18 13:23 Consult Physician Routine Consulting Provider: Rudy Freedman Consult Reason/Comments: thrombocytopenia, thought to be drug related Do you want consulting provider notified?: Yes 10/20/18 21:09 Consult Physician Routine Consulting Provider: Luciana Glynn Consult Reason/Comments: headaches Do you want consulting provider notified?: Yes 10/21/18 22:27 Consult Physician Routine Consulting Provider: Flakita Lau Consult Reason/Comments: icu management Do you want consulting provider notified?: Already Contacted Primary care physician: Tan Jessica - Discharge Diagnosis(es) (1) AML (acute myeloblastic leukemia) Status: Acute (2) Thrombocytopenia Status: Acute Hospital Course: This is a discharge transfer summary on a 57-year-old white female essentially admitted for bicytopenia. The patient's provisional diagnosis was leukemia acutely. She ended up having a fall during this hospitalization which resulted in intracerebral hemorrhage. She was transferred after discussion with [facility] and was given irradiated platelets and stabilized enough for transfer. Patient Condition at Discharge: Fair Plan - Discharge Summary Discharge Rx Participant: No New Discharge Prescriptions: No Action Metoprolol Tartrate [Lopressor] 25 mg PO BID Losartan [Cozaar] 25 mg PO DAILY Simvastatin [Zocor] 20 mg PO HS Lifitegrast [Xiidra] 1 drop BOTH EYES BID Calcium Carbonate [Calcium] 600 mg PO DAILY Discharge Medication List Losartan [Cozaar] 25 mg PO DAILY 07/17/17 [History] Metoprolol Tartrate [Lopressor] 25 mg PO BID 07/17/17 [History] Simvastatin [Zocor] 20 mg PO HS 07/17/17 [History] Calcium Carbonate [Calcium] 600 mg PO DAILY 10/19/18 [History] Lifitegrast [Xiidra] 1 drop BOTH EYES BID 10/19/18 [History] Follow up Appointment(s)/Referral(s): Tan Jessica MD [Primary Care Provider] - 1 Week Discharge Disposition: HOME SELF-CARE
== END 2018-10-21 23:30 | disposition short-term general hospital (02) | DRG 836 ==
LOC: EC 10:58 → 3NMEDONC 13:21 → 2SICU 10-21 21:54
PROVIDERS: ADMIT Family Medicine; ATTEND Family Medicine
PROC: 30233R1 Transfusion of Nonautologous Platelets into Peripheral Vein, Percutaneous Approach (ICD-10-PCS; 2018-10-19)
PROC: 07DR3ZX Extraction of Iliac Bone Marrow, Percutaneous Approach, Diagnostic (ICD-10-PCS; principal; 2018-10-21 10:25)
DX: C92.40 Acute promyelocytic leukemia, not having achieved remission (principal); S06.309A Unspecified focal traumatic brain injury with loss of consciousness of unspecified duration, initial encounter; D69.59 Other secondary thrombocytopenia; J45.909 Unspecified asthma, uncomplicated; R51 Headache; D63.0 Anemia in neoplastic disease; E78.5 Hyperlipidemia, unspecified; W19.XXXA Unspecified fall, initial encounter; Y92.239 Unspecified place in hospital as the place of occurrence of the external cause; T50.905A Adverse effect of unspecified drugs, medicaments and biological substances, initial encounter; Y93.9 Activity, unspecified; I10 Essential (primary) hypertension; Z79.899 Other long term (current) drug therapy; Z88.8 Allergy status to other drugs, medicaments and biological substances; Z88.1 Allergy status to other antibiotic agents; Z91.013 Allergy to seafood; Z80.42 Family history of malignant neoplasm of prostate; Z80.7 Family history of other malignant neoplasms of lymphoid, hematopoietic and related tissues; Z82.49 Family history of ischemic heart disease and other diseases of the circulatory system; Z83.49 Family history of other endocrine, nutritional and metabolic diseases; Z84.0 Family history of diseases of the skin and subcutaneous tissue; Z98.890 Other specified postprocedural states; Z86.19 Personal history of other infectious and parasitic diseases
CPT/HCPCS: 36415; 38222; 70450; 71045; 71046; 71275; 72125; 80048; 80053; 80074; 81001; 82607; 82728; 82746; 83540; 83550; 83880; 84443; 84484; 84550; 85025; 85027; 85045; 85379; 85610; 85730; 86850; 86900; 86901; 87390; 93005; 94002; 94770; 99285